=== PATIENT | female | born 1965 | race Caucasian/White ===

== ENCOUNTER 2017-05-28 10:12 | Emergency (ER) | payer MEDICAID | END 2017-05-28 11:01 | disposition home or self-care (01) | LOC: D.ER 10:12 | DX: S00.03XA Contusion of scalp, initial encounter (principal); Y04.2XXA Assault by strike against or bumped into by another person, initial encounter; Y93.89 Activity, other specified; Y92.89 Other specified places as the place of occurrence of the external cause; M54.5 Low back pain ==